=== PATIENT | male | born 1950 | race Caucasian/White ===

== ENCOUNTER 2018-05-24 23:57 | Inpatient (IN) | payer MEDICARE ==
[2018-05-25] MEDS ORDERED: cefTRIAXone\\ROCEPHIN 1 GM VIAL ONE (00:21)
[2018-05-25] MEDS ORDERED: cefTRIAXone\\ROCEPHIN 2 GM VIAL ONE ×2 (00:21→01:39)
[2018-05-25] MEDS ORDERED: methylPREDNISolone Sod Succ/PF 125 MG/2 ML VIAL ONE (00:21)
[2018-05-25] MEDS ORDERED: Sodium Chloride 0.9% 100 ML ONE (00:21)
[2018-05-25] MEDS ORDERED: Magnesium 2 GM/50 ML BAG (IN WATER) ONE (00:21)
[2018-05-25 00:22] LABS: #Basophils 0.1 thou/uL (0.0-0.2); #Eosinphils 2.3 thou/uL (0.0-0.7); #Lymphocytes 1.8 thou/uL (1.20-3.40); #Monocytes 1.1 thou/uL (0.11-0.59); #Neutrophils 7.6 thou/uL (1.40-6.50); %Basophils 0.8 % (0.0-1.0); %Eosinophils 17.9 % (0.0-10.0); %Lymphocytes 14.2 % (21.0-51.0); %Monocytes 8.6 % (0.0-10.0); %Neutrophils 58.5 % (42.0-75.0); Hemoglobin 15.2 g/dL (14.0-18.0); Mean Corpuscular Hemoglobin 33.2 pg (27.0-31.0); Mean Platelet Volume 7.2 fL (7.4-10.4); Platelet Count 226 thou/uL (130-400); RBC Distribution Width 11.6 % (11.5-14.5); Red Blood Cell (RBC) Count 4.59 mill/uL (4.70-6.10); White Blood Cell (WBC) Count 12.9 thou/uL (4.8-10.8)
[2018-05-25] MEDS ORDERED: Azithromycin 500 MG VIAL ONE (00:25)
[2018-05-25 00:42] LABS: ALT (SGPT) 28 U/L (8-55); AST (SGOT) 27 U/L (5-34); Albumin 4.4 g/dL (3.4-4.8); Alkaline Phosphatase 105 U/L (40-150); Anion Gap 15 mmol/L (10-20); BUN (Urea Nitrogen) 28 mg/dL (8.4-25.7); Bilirubin, Total 0.7 mg/dL (0.2-1.2); Calc. Creatinine Clearance 0 mL/min (70-130); Calcium 9.8 mg/dL (7.8-10.44); Carbon Dioxide 22 mmol/L (23-31); Chloride 104 mmol/L (98-107); Estimated GFR-MDRD 52; Globulin 2.8 g/dL (2.4-3.5); Glucose 129 mg/dL (80-115); Protein, Total 7.2 g/dL (5.8-8.1); Sodium 137 mmol/L (136-145)
[2018-05-25] MEDS ORDERED: Ondansetron PF 4 MG/2 ML Vial IVP PRN (02:03)
[2018-05-25] MEDS ORDERED: Ondansetron ODT 4 MG TAB PO PRN (02:03)
[2018-05-25] MEDS ORDERED: Acetaminophen 325 MG TAB PO PRN (02:03)
[2018-05-25] MEDS ORDERED: PROVENTIL INHALER 6.7 G (200 INHALATIONS) INH PRN (02:04)
--- NOTE | 2018-05-25 03:30 | HP ---
PRIMARY CARE DOCTOR: Andrez Washington MD. CODE STATUS: Full code. TIME OF EVALUATION: 02:00 a.m. CHIEF COMPLAINT: Shortness of breath. HISTORY OF PRESENT ILLNESS: This is a 68-year-old male patient with past medical history of coronary artery disease, status post CABG, CHF, asthma, hypertension, came to the hospital after having severe, gradually worsening shortness of breath. It has been present for the past week with no clear triggers. No alleviating factors. The patient also have some associated cough with thick yellow sputum. The patient was found to be hypoxic on arrival to the ER with the saturation in the 80s, needing nasal cannula, and also associated wheezing that improved with nebulizers. REVIEW OF SYSTEMS: CONSTITUTIONAL: The patient had no fever or chills. The patient has generalized weakness. RESPIRATORY: The patient has cough, sputum production, and shortness of breath. CARDIOVASCULAR: No chest pain or palpitation. GASTROINTESTINAL: No nausea. No vomiting, diarrhea, or abdominal pain. DOCTOR NATUROPATHIC: No dizziness, headache, or feeling lightheaded. GENITOURINARY: No burning on urination. EXTREMITIES: No leg swelling. All other systems were reviewed and negative except for the findings mentioned above. PAST MEDICAL HISTORY: As mentioned in the HPI. FAMILY HISTORY: Was reviewed. The patient has a father with heart disease. PAST SURGICAL HISTORY: Orthopedic surgery in right leg. PSYCH HISTORY: No previous psych history. SOCIAL HISTORY: The patient drinks everyday less than 5 drinks per day. No drugs. No smoking history. KNOWN ALLERGIES: No known drug allergies. REPORTED MEDICATIONS: 1. Furosemide. 2. Spironolactone. 3. Baby aspirin. 4. Zyrtec. 5. Carvedilol. 6. Montelukast. 7. Lisinopril. 8. Atorvastatin. PHYSICAL EXAMINATION: VITAL SIGNS: On presentation, blood pressure 162/91 with heart rate 78, respiratory rate was 26, temperature 97.9, and oxygen saturation was 98% on 4 L. GENERAL APPEARANCE: The patient is alert, oriented, in no acute distress. HEENT: Eyes, normal conjunctiva. Moist oral mucosa. Anicteric. No JVD. RESPIRATORY: The patient has bilateral air entry decreased with rales and no wheezing. Symmetric expansion. CARDIOVASCULAR: The patient is tachycardic. Normal rhythm. No murmurs. No gallop. No edema. ABDOMEN: Soft. Normal bowel sounds. MUSCULOSKELETAL: Baseline range of motion and strength. No tenderness. SKIN: Warm, intact. No pallor. No rash. No redness. Peripheral pulses are present. Capillary refill seems to be intact. NEURO: No evidence of any new focal weakness. Baseline speech. Cranial nerve seems to be intact. PSYCH: The patient is in good mood. No anxiety. Optimal judgment. DIAGNOSTIC STUDIES: EKG was reviewed. The patient has sinus rhythm with occasional PVCs, RBBB, ventricular rate 81, CT 188, QRS 134, and QT corrected 525. Chest x-ray was reviewed, the patient has right lower lobe increased density, possible infiltrate, also increased markings in the left side. LABORATORY DATA: Reviewed. The patient has a white count 12.9, hemoglobin 15.2, and platelet count 226. Sodium 137, potassium 4.0, chloride 104, carbon dioxide 22, anion gap 15, BUN 28, creatinine 1.37, the previous creatinine was 1.21, GFR 52, glucose 129, lactic acid 1.2, calcium 9.8, total bilirubin 0.7, AST 27, ALT 28, alkaline phosphatase 105. Troponin 0.010. Beta-natriuretic peptide 189. Serum total protein 7.2, albumin 4.4, globulin 2.8, albumin to globulin ratio is 1.6. ASSESSMENT AND PLAN: The patient has been placed in the hospital with following medical problems. 1. Acute hypoxic respiratory failure. The patient presented with saturation in the 80s, likely secondary to asthma and underlying pneumonia. We will treat underlying condition. Continue oxygen support. Continue nebulizers. 2. Acute asthma exacerbation. The patient has bilateral wheezing. No rales. The patient reported he gets asthma several times every year, mostly triggered by respiratory infections, and also due to haze in summer time. Place the patient on nebs, steroids, and antibiotics. 3. Pneumonia. Possible pneumonia seen on the chest x-ray. The patient will be on antibiotics. We are limited with fluids due to underlying history of congestive heart failure. 4. Systolic congestive heart failure. The patient's last echo was in 2013 and it shows EF of 25% to 30%. We will reconcile home medication. We will adjust treatment as needed. The patient follows with Dr. Acosta and Dr. Acosta needs to be consulted. There is no recent echo, we will do one while in the hospital. 5. Uncontrolled blood pressure. The patient presented with systolic blood pressure 162/91. We will reconcile home medications, we will adjust treatment as needed. 6. Deep venous thrombosis prophylaxis. 7. Sepsis. The patient has pneumonia, tachycardia, respiratory failure, leukocytosis of 12.9. We will treat underlying condition. Treatment as above. Job ID: [id number]
[2018-05-25 03:38] VITALS: BMI 23.7
[2018-05-25] MEDS ORDERED: Prevnar 13-Val Conj/PF 0.5 ML SYRINGE IM ONE (04:00)
[2018-05-25] MEDS ORDERED: Aspirin Chewable 81 MG TAB ONE (05:31)
[2018-05-25] MEDS ORDERED: Sodium Chloride 0.9% 10 ML ONE ×2 (05:32→13:03)
[2018-05-25] MEDS ORDERED: methylPREDNISolone Sod Succ 40 MG VIAL IVP SCH (06:00)
[2018-05-25] MEDS ORDERED: Spironolactone 25 MG TAB PO SCH (08:00)
--- NOTE | 2018-05-25 08:14 | RAD ---
CHEST ONE VIEW: HISTORY: Cough. COMPARISON: Radiograph from 04/16/2016. FINDINGS: Some mild scarring in the lung bases. No pneumothorax. No effusion. Multiple midline sternotomy wi res. No acute osseous abnormality. IMPRESSION: No acute intrathoracic abnormality. POS: KELLIE
[2018-05-25] MEDS ORDERED: Enoxaparin Sodium 40 MG/0.4 ML SYRINGE SC SCH (09:00)
[2018-05-25] MEDS ORDERED: Aspirin 325 MG TAB PO SCH (09:00)
[2018-05-25] MEDS ORDERED: Lisinopril 2.5 MG TAB PO SCH (09:00)
[2018-05-25] MEDS ORDERED: Loratadine 10 MG TAB PO SCH (09:00)
[2018-05-25 09:36] LABS: #Lymphocytes 0.5 thou/uL (1.20-3.40); #Monocytes 0.1 thou/uL (0.11-0.59); #Neutrophils 3.5 thou/uL (1.40-6.50); %Basophils 0.5 % (0.0-1.0); %Eosinophils 0.2 % (0.0-10.0); %Lymphocytes 11.3 % (21.0-51.0); %Monocytes 1.3 % (0.0-10.0); %Neutrophils 86.6 % (42.0-75.0); Hemoglobin 14.3 g/dL (14.0-18.0); Mean Corpuscular HGB CONC 33.2 g/dL (32.0-36.0); Mean Corpuscular Hemoglobin 32.4 pg (27.0-31.0); Mean Corpuscular Volume 97.5 fL (78.0-98.0); Mean Platelet Volume 7.4 fL (7.4-10.4); Platelet Count 214 thou/uL (130-400); RBC Distribution Width 11.5 % (11.5-14.5); Red Blood Cell (RBC) Count 4.43 mill/uL (4.70-6.10); White Blood Cell (WBC) Count 4.1 thou/uL (4.8-10.8)
[2018-05-25 09:53] LABS: Anion Gap 15 mmol/L (10-20); BUN (Urea Nitrogen) 24 mg/dL (8.4-25.7); Calc. Creatinine Clearance 71 mL/min (70-130); Calcium 9.3 mg/dL (7.8-10.44); Carbon Dioxide 20 mmol/L (23-31); Chloride 107 mmol/L (98-107); Estimated GFR-MDRD 69; Glucose 159 mg/dL (80-115); Potassium 4.3 mmol/L (3.5-5.1); Sodium 138 mmol/L (136-145)
[2018-05-25 13:13] VITALS: TEMP 97.8
[2018-05-25 16:18] VITALS: BP 145/72
[2018-05-25] MEDS ORDERED: Atorvastatin Calcium 40 MG TAB PO SCH (21:00)
[2018-05-25] MEDS ORDERED: Azithromycin 500 MG in Sodium Chloride 0.9% 250 ML 250 ML IVPB SCH (23:00)
[2018-05-25] MEDS ORDERED: cefTRIAXone\\ROCEPHIN 1 GM in Sodium Chloride 0.9% 100 ML IVPB SCH (23:59)
--- NOTE | 2018-05-26 02:31 | DIS ---
DATE OF ADMISSION: 05/25/2018 DATE OF DISCHARGE: 05/25/2018 DISCHARGE DIAGNOSES: 1. Acute asthma exacerbation. 2. Acute hypoxic respiratory failure, mild, resolved. 3. Coronary artery disease, chronic and stable. 4. Dyslipidemia, stable. CONSULTATIONS: None. PERTINENT LAB AND X-RAY FINDINGS: Creatinine ranged between 1.07 to 1.37, estimated GFR ranged between 52 to 69. Lactic acid level 1.2. BNP 189. CBC showed a white blood cell count ranging between 4.1 to 12.9. Portable chest x-ray dated 05/25/2018, showed no acute cardiopulmonary process. HOSPITAL COURSE: The patient was admitted to the medical floor after initially presenting with increased shortness of breath and cough with mild hypoxia. The patient was placed on oxygen supplementation, undergoing chest imaging showing no acute infiltrate. The patient was placed on IV Zithromax with Rocephin and placed on IV Solu-Medrol. The patient rapidly clinically improved with supportive management in addition to IV Solu-Medrol. No specific infiltrate was identified on chest imaging and the patient rapidly clinically improved with supportive management. Overall, the patient clinically stable, maintaining O2 saturations in the mid 90% range on room air. I have examined the patient at the time of discharge and discussed followup instructions. The patient verbalized understanding and in agreement, ready for discharge on 05/25/2018. DISCHARGE MEDICATIONS: 1. ProAir HFA two puffs inhaled q.4 hours p.r.n. 2. Zyrtec 10 mg p.o. daily. 3. Singulair 10 mg p.o. at bedtime. 4. Enteric-coated aspirin 325 mg p.o. daily. 5. Lipitor 40 mg p.o. at bedtime. 6. Lasix 40 mg p.o. daily. 7. Lisinopril 2.5 mg p.o. daily. 8. Spironolactone 12.5 mg p.o. q.a.m. 9. [place] 5/325 mg 1 to 2 tablets p.o. q.4 to 6 hours p.r.n. FOLLOWUP: The patient may follow up with his primary care provider, Dr. Andrez Washington within 7 days of discharge. CONDITION ON DISCHARGE: Stable. ACTIVITY: Ad-callie. DIET: Heart healthy. CODE STATUS: Full. DISPOSITION: To home, 05/25/2018. Job ID: [id number]
[2018-05-26] MEDS ORDERED: cefTRIAXone\\ROCEPHIN 1 GM in Sodium Chloride 0.9% 100 ML IVPB SCH (22:00)
[2018-05-26] MEDS ORDERED: Azithromycin 500 MG in Sodium Chloride 0.9% 250 ML 250 ML IVPB SCH (23:59)
--- NOTE | 2018-05-27 10:09 | PQF ---
CHUNG PRATT POLLO HOPPER DO [id number] [facility] [id number] CLINICAL DOCUMENTATION IMPROVEMENT CLARIFICATION FORM: ICD-10 Updated PLEASE DO AN ADDENDUM TO THE PROGRESS NOTE WITH ANY DOCUMENTATION UPDATES OR ADDITIONS AND CARRY THROUGH TO DC SUMMARY. THANK YOU. DATE: 05/27/18 ATTN: DR. Isatu HOPPER Please exercise your independent, professional judgment in responding to the clarification form. Clinical indicators are provided on the bottom of this form for your review. Please check appropriate box(s) to clarify if the following diagnosis has been ruled in or ruled out: SEPSIS [ ] Ruled in diagnosis [ x ] Ruled out diagnosis [ ] Other diagnosis [ ] Unable to determine In addition, please specify: Present on Admission (POA): [ ] Yes [ x ] No [ ] Unable to determine For continuity of documentation, please document condition throughout progress notes and discharge summary. Thank You. CLINICAL INDICATORS - SIGNS / SYMPTOMS / LABS 3 - ON ADMISSION WBC 12.9 ED - SPO2 SAT WAS 84 % IN TRIAGE, 3 PN (ANTONIO) ASSESSMENT/PLAN : 7) SEPSIS - THE PT HAS PNEUMONIA, TACHYCARDIA, RESP FAILURE, LEUKOCYTOSIS OF 12.9. WE WILL TREAT UNDERLYING CONDITION. 05/25 DISCHARGE SUMMARY (RUCHI) NO FURTHER MENTION OF SEPSIS RISK: ACUTE HYPOXIC RESPIRATORY FAILURE ACUTE ASTHMA EXACERBATION TREATMENTS: ROCEPHIN IV ZITHROMAX IV THANK YOU ! YOMI Queen [email or web address] [phone] (This form is maintained as a part of the permanent medical record) 2014 [employer] All Rights Reserved [facility]
== END 2018-05-25 17:55 | disposition home or self-care (01) | DRG 871 ==
LOC: ERS 23:57 → 3SE 05-25 01:23
PROVIDERS: ADMIT Hospitalist; ATTEND Hospitalist
DX: A41.9 Sepsis, unspecified organism (principal); J96.01 Acute respiratory failure with hypoxia; J18.9 Pneumonia, unspecified organism; J45.901 Unspecified asthma with (acute) exacerbation; I50.22 Chronic systolic (congestive) heart failure; I11.0 Hypertensive heart disease with heart failure; I25.10 Atherosclerotic heart disease of native coronary artery without angina pectoris; E78.5 Hyperlipidemia, unspecified
CPT/HCPCS: 36415; 71045; 80053; 83605; 83880; 84484; 85025; 87040; 90471; 90662; 93005; 94640; 96365; 96367; 96375; G0008; J0456; J0696; J1650; J2920; J2930; J3475; J7050; J7620

== ENCOUNTER 2019-10-07 07:37 | Outpatient (CLI) | payer MEDICARE ==
[2019-10-07 17:06] LABS: Hemoglobin A1c 5.4 % (4.0-6.0)
[2019-10-07 17:16] LABS: ALT (SGPT) 30 U/L (8-55); AST (SGOT) 27 U/L (5-34); Alkaline Phosphatase 82 U/L (40-110); Anion Gap 13 mmol/L (10-20); BUN (Urea Nitrogen) 24 mg/dL (8.4-25.7); Bilirubin, Total 0.7 mg/dL (0.2-1.2); Calc. Creatinine Clearance 0 mL/min (70-130); Calcium 9.2 mg/dL (7.8-10.44); Carbon Dioxide 24 mmol/L (23-31); Cardiac Risk 2.9 (Less than 4.5); Chloride 106 mmol/L (98-107); Cholesterol 122 mg/dl (< 200 Desired); Estimated GFR-MDRD 58; Glucose 98 mg/dL (80-115); HDL Cholesterol 42 mg/dL (>60 Neg Risk); LDL Cholesterol, Calculated 69 mg/dL; Potassium 4.5 mmol/L (3.5-5.1); Sodium 138 mmol/L (136-145); Triglycerides 55 mg/dL (Less than 150)
[2019-10-07 18:11] LABS: #Eosinphils 0.1 thou/uL (0.0-0.7); #Lymphocytes 1.4 thou/uL (1.20-3.40); #Monocytes 0.7 thou/uL (0.11-0.59); #Neutrophils 3.9 thou/uL (1.40-6.50); %Basophils 0.7 % (0.0-1.0); %Eosinophils 1.9 % (0.0-10.0); %Neutrophils 63.4 % (42.0-75.0); Hemoglobin 13.8 g/dL (14.0-18.0); MDiff Complete? YES; Macrocytosis SLIGHT = 6-15 cells (100X) (0-5/hpf); Mean Corpuscular HGB CONC 32.8 g/dL (32.0-36.0); Mean Corpuscular Hemoglobin 34.5 pg (27.0-31.0); Mean Platelet Volume 7.9 fL (7.4-10.4); Platelet Count 177 thou/uL (130-400); Platelet Morphology Comment Appears Adequate; RBC Distribution Width 11.9 % (11.5-14.5); Red Blood Cell (RBC) Count 4.01 mill/uL (4.70-6.10); White Blood Cell (WBC) Count 6.1 thou/uL (4.8-10.8)
== END 2019-10-07 07:38 | disposition home or self-care (01) ==
LOC: LAB 07:37
PROVIDERS: ATTEND Family Medicine
DX: I25.10 Atherosclerotic heart disease of native coronary artery without angina pectoris (principal); R97.20 Elevated prostate specific antigen [PSA]; R73.01 Impaired fasting glucose
CPT/HCPCS: 36415; 80053; 80061; 83036; 84153; 85025